=== PATIENT | female | born 1985 | race Caucasian/White ===

== ENCOUNTER 2017-04-03 11:40 | Emergency (ER) | payer SELFPAY ==
[2017-04-03] MEDS ORDERED: Ketorolac Tromethamine 30 MG/ML VIAL ONE (11:59)
[2017-04-03 12:09] LABS: Bilirubin Negative (Negative); Blood, Urine Negative (Negative); Clarity Clear (Clear); Glucose, Urine (Dipstick) Negative (Negative); Leukocyte Negative (Negative); Nitrite Negative (Negative); Protein, Urine (Dipstick) Negative (Neg-Trace); Urobilinogen 0.2 mg/dL (0.2-1.0)
[2017-04-03] MEDS ORDERED: Fentanyl 100 MCG/2 ML VIAL ONE ×2 (12:38→13:24)
[2017-04-03 12:52] LABS: #Basophils 0.1 thou/uL (0.0-0.2); #Eosinphils 0.3 thou/uL (0.0-0.7); #Lymphocytes 2.1 thou/uL (1.20-3.40); #Monocytes 0.7 thou/uL (0.11-0.59); #Neutrophils 6.9 thou/uL (1.40-6.50); %Basophils 1.3 % (0.0-1.0); %Eosinophils 2.6 % (0.0-10.0); %Lymphocytes 21.1 % (21.0-51.0); %Monocytes 6.5 % (0.0-10.0); %Neutrophils 68.5 % (42.0-75.0); Hemoglobin 16.5 g/dL (12.0-16.0); Mean Corpuscular HGB CONC 34.7 g/dL (32.0-36.0); Mean Corpuscular Hemoglobin 32.4 pg (27.0-31.0); Mean Corpuscular Volume 93.4 fl (81.0-99.0); Mean Platelet Volume 6.9 fL (7.4-10.4); Platelet Count 324 thou/uL (130-400); RBC Distribution Width 11.5 % (11.5-14.5)
[2017-04-03 12:58] LABS: ALT (SGPT) 51 U/L (8-55); AST (SGOT) 46 U/L (5-34); Albumin 4.1 g/dL (3.5-5.0); Alkaline Phosphatase 132 U/L (40-150); Anion Gap 15 mmol/L (10-20); BUN (Urea Nitrogen) 11 mg/dL (7.0-18.7); Bilirubin, Total 0.4 mg/dL (0.2-1.2); Calc. Creatinine Clearance 0 mL/min (70-130); Calcium 9.3 mg/dL (7.8-10.44); Carbon Dioxide 20 mmol/L (22-29); Chloride 108 mmol/L (98-107); Estimated GFR-MDRD 76; Globulin 4.1 g/dL (2.4-3.5); Glucose 111 mg/dL (70-105); Lipase 32 U/L (8-78); Potassium 4.1 mmol/L (3.5-5.1); Protein, Total 8.2 g/dL (6.0-8.3); Sodium 139 mmol/L (136-145)
[2017-04-03 14:02] LABS: Pregnancy Test - Urine (BHCG) Negative (Negative); Pregu Control Background? CLEAR/WHITE (CLR/WHITE); Pregu Control Bar Appear? YES (CONTROL BAR)
--- NOTE | 2017-04-03 14:35 | CT ---
CT ABDOMEN AND PELVIS WITH IV CONTRAST: Date: 04/03/17 INDICATION: Bilateral flank pain with dysuria and low back pain. COMPARISON: None. FINDINGS: There is symmetric enhancement of both kidneys. No hydronephrosis is evident. The bladder is decompre ssed. There is gas-filled tampon within the vagina. The visualized adnexa appear within normal limits for CT. The unopacified large bowel demonstrates a few scattered diverticula. There is a normal appe ndix in the right lower quadrant. Small bowel is of normal caliber. The lung bases are clear. No foca l hepatic lesion is evident. The spleen and adrenal glands appear within normal limits. The pancreas is normal appearing. No definite acute osseous abnormality is evident. IMPRESSION: 1. No CT explanation for the patient's abdominal pain. 2. No overt CT evidence to suggest presence of pyelonephritis. 3. Normal appendix. 4. Other findings as above. POS: [facility]
[2017-04-03] MEDS ORDERED: cefTRIAXone\\ROCEPHIN 1 GM VIAL ONE ×2 (14:47→14:50)
[2017-04-03] MEDS ORDERED: Sodium Chloride 0.9% 100 ML ONE (14:47)
== END 2017-04-03 15:28 | disposition home or self-care (01) ==
LOC: BURERS 11:40
DX: M54.5 Low back pain (principal); R19.7 Diarrhea, unspecified; F41.9 Anxiety disorder, unspecified; F31.9 Bipolar disorder, unspecified; F90.9 Attention-deficit hyperactivity disorder, unspecified type; F43.10 Post-traumatic stress disorder, unspecified; F17.210 Nicotine dependence, cigarettes, uncomplicated
CPT/HCPCS: 74177; 80053; 81003; 81025; 83690; 85025; 87086; 94760; 96361; 96365; 96372; 96375; 96376; J0696; J1885; J3010; J7050

== ENCOUNTER 2017-12-29 08:05 | Emergency (ER) | payer OTHER ==
[2017-12-29] MEDS ORDERED: Lorazepam 2 MG/ML VIAL ONE (08:23)
[2017-12-29] MEDS ORDERED: Ondansetron HCl/PF 4 MG/2 ML Vial ONE (08:23)
[2017-12-29] MEDS ORDERED: Ketorolac Tromethamine 30 MG/ML VIAL ONE (08:23)
[2017-12-29] MEDS ORDERED: Fentanyl 100 MCG/2 ML VIAL ONE (09:45)
[2017-12-29 13:16] LABS: #Basophils 0.1 thou/uL (0.0-0.2); #Eosinphils 0.4 thou/uL (0.0-0.7); #Lymphocytes 2.2 thou/uL (1.20-3.40); #Monocytes 1.1 thou/uL (0.11-0.59); #Neutrophils 5.6 thou/uL (1.40-6.50); %Eosinophils 3.9 % (0.0-10.0); %Lymphocytes 23.6 % (21.0-51.0); %Monocytes 11.8 % (0.0-10.0); %Neutrophils 59.7 % (42.0-75.0); Hemoglobin 15.8 g/dL (12.0-16.0); Mean Corpuscular HGB CONC 34.7 g/dL (32.0-36.0); Mean Corpuscular Volume 92.3 fL (78.0-98.0); Mean Platelet Volume 8.6 fL (7.4-10.4); Platelet Count 309 thou/uL (130-400); RBC Distribution Width 10.8 % (11.5-14.5); Red Blood Cell (RBC) Count 4.93 mill/uL (4.20-5.40); White Blood Cell (WBC) Count 9.4 thou/uL (4.8-10.8)
[2017-12-29 13:17] LABS: Base Excess-Venous 2.8 mmol/L (0 (+/- 2.5)); Bicarbonate (HCO3v) 25.6 mmol/L (1.0-85.0); CO2 Tension (PvCO2) 33.5 mmHg (41.0-51.0); O2 Tension (PvO2) 220.2 mmHg (35.0-45.0); pH (Venous) 7.491 (7.35-7.45)
[2017-12-29 13:18] LABS: Calcium, Ionized 1.11 mmol/L (1.12-1.32); Hemoglobin - Calc 15.5 g/dL (12.0-18.0); Potassium 3.7 mmol/L (3.4-4.7); T. Carbon Dioxide 26.6 mmol/L (1.0-85.0); vO2 Saturation-calc 99.8 % (94-98)
[2017-12-29 13:19] LABS: Amphetamine Not Detected (NotDetected); Barbiturates Screen Not Detected (NotDetected); Benzodiazepine Screen Not Detected (NotDetected); Cocaine Metabolite Screen Not Detected (NotDetected); Medtox Control Line Valid? VALID (VALID); Methadone Not Detected (NotDetected); Methamphetamine Not Detected (NotDetected); Opiate Screen Detected (NotDetected); Oxycodone Screen Not Detected (NotDetected); Phencyclidine (PCP) Not Detected (NotDetected); THC/Cannabinoid Screen Not Detected (NotDetected); Tricyclic Screen Not Detected (NotDetected)
[2017-12-29 13:20] LABS: Clarity Slightly Cloudy (Clear); Specific Gravity, Urine 1.015 (1.005-1.030)
[2017-12-29 13:21] LABS: Bilirubin Small (Negative); Blood, Urine Trace (Negative); Glucose, Urine (Dipstick) Negative (Negative); Leukocyte Negative (Negative); Nitrite Negative (Negative); Protein, Urine (Dipstick) 30 mg/dL (Neg-Trace); RBC/HPF 0-3 HPF (0-3)
[2017-12-29 13:22] LABS: Bacteria/HPF 2+ HPF (None Seen); Crystals/HPF 1+ AMORPH URATES HPF (Negative); WBC/HPF 0-3 HPF (0-3)
[2017-12-29 13:23] LABS: Troponin I Less than 0.010 ng/mL (< 0.028)
[2017-12-29 13:24] LABS: CKMB 11.1 ng/mL (0-6.6)
[2017-12-29 13:25] LABS: ALT (SGPT) 99 U/L (8-55); AST (SGOT) 127 U/L (5-34); Albumin 4.1 g/dL (3.5-5.0); Alkaline Phosphatase 157 U/L (40-150); Anion Gap 15 mmol/L (10-20); BUN (Urea Nitrogen) 7 mg/dL (7.0-18.7); Bilirubin, Total 0.6 mg/dL (0.2-1.2); Calc. Creatinine Clearance 0 mL/min (70-130); Calcium 9.5 mg/dL (7.8-10.44); Carbon Dioxide 24 mmol/L (22-29); Chloride 106 mmol/L (98-107); Estimated GFR-MDRD 80; Globulin 3.2 g/dL (2.4-3.5); Glucose 105 mg/dL (70-105); Lipase 34 U/L (8-78); Potassium 3.7 mmol/L (3.5-5.1); Protein, Total 7.3 g/dL (6.0-8.3); Sodium 141 mmol/L (136-145)
[2017-12-29 13:26] LABS: CK (CPK) 3493 U/L (29-168)
--- NOTE | 2017-12-29 18:22 | RAD ---
PORTABLE CHEST: 12/29/17 An AP portable film at 0810 shows a normal sized heart and clear lungs. No infiltrate or effusion was seen. The trachea is midline. The mediastinum appears normal. IMPRESSION: No acute findings. POS: [facility]
== END 2017-12-29 11:43 | disposition short-term general hospital (02) ==
LOC: BURERS 08:05
DX: R07.9 Chest pain, unspecified (principal); M54.9 Dorsalgia, unspecified; R06.4 Hyperventilation
CPT/HCPCS: 71045; 80306; 81003; 81015; 82330; 82803; 83690; 85379; 96374; 96375; J1885; J2060; J2405; J3010

== ENCOUNTER 2018-03-22 10:37 | Emergency (ER) | payer OTHER ==
--- NOTE | 2018-03-22 11:12 | RAD ---
RADIOGRAPH RIGHT WRIST 3 VIEWS: Date: 03/22/18 HISTORY: 33-year-old female status post acute traumatic injury to the right wrist. FINDINGS: No fracture is identified. If there is snuffbox tenderness that suggests an occult scaphoid fracture, then the general recommendation is immobilization and follow-up imaging in 5-10 days. Alignment is n ormal. There are no degenerative changes. No soft tissue calcifications or subcutaneous emphysema. Steven ne mineralization is normal. IMPRESSION: Normal. POS: [facility]
== END 2018-03-22 11:08 | disposition home or self-care (01) ==
LOC: BURERS 10:37
DX: S63.501A Unspecified sprain of right wrist, initial encounter (principal); F31.9 Bipolar disorder, unspecified; F17.210 Nicotine dependence, cigarettes, uncomplicated; W18.30XA Fall on same level, unspecified, initial encounter

== ENCOUNTER 2018-04-07 07:05 | Emergency (ER) | payer OTHER | END 2018-04-07 08:10 | disposition home or self-care (01) | LOC: BURERS 07:05 | DX: F43.20 Adjustment disorder, unspecified (principal); F31.9 Bipolar disorder, unspecified; F17.210 Nicotine dependence, cigarettes, uncomplicated; F41.9 Anxiety disorder, unspecified | CPT/HCPCS: 99283 ==

== ENCOUNTER 2018-09-15 18:16 | Emergency (ER) | payer OTHER | END 2018-09-15 19:12 | disposition home or self-care (01) | LOC: BURERS 18:16 | DX: L25.9 Unspecified contact dermatitis, unspecified cause (principal); F31.9 Bipolar disorder, unspecified; F41.9 Anxiety disorder, unspecified; F17.210 Nicotine dependence, cigarettes, uncomplicated | CPT/HCPCS: 99282 ==

== ENCOUNTER 2019-04-24 10:27 | Emergency (ER) | payer OTHER, SELFPAY ==
[2019-04-24] MEDS ORDERED: AMOXicillin 250 MG CAP ONE (10:48)
[2019-04-24] MEDS ORDERED: Ondansetron ODT 4 MG TAB ONE (10:48)
[2019-04-24] MEDS ORDERED: Dexamethasone 4 MG TAB ONE (10:48)
== END 2019-04-24 10:55 | disposition home or self-care (01) ==
LOC: BURERS 10:27
DX: J44.1 Chronic obstructive pulmonary disease with (acute) exacerbation (principal); J02.9 Acute pharyngitis, unspecified; H66.92 Otitis media, unspecified, left ear; F17.210 Nicotine dependence, cigarettes, uncomplicated; F31.9 Bipolar disorder, unspecified; F41.9 Anxiety disorder, unspecified; F20.9 Schizophrenia, unspecified
CPT/HCPCS: 87081; 87430; 99283; J8540; Q0162